=== PATIENT | female | born 1965 | race African-American/Black ===

== ENCOUNTER 2023-02-18 17:50 | Emergency (ER) | payer BC ==
[~2023-02-18] VITALS: Ht 154.9 cm; Wt 78.0 kg
[2023-02-18] MEDS ORDERED: TAMIFLU75 MG PO (18:46)
[2023-02-18 19:08] VITALS: BP 157/87
== END 2023-02-18 19:09 | disposition home or self-care (01) ==
LOC: FSED 17:56
DX: R05.9 Cough, unspecified (principal); J10.1 Influenza due to other identified influenza virus with other respiratory manifestations; J20.9 Acute bronchitis, unspecified; I10 Essential (primary) hypertension; M06.9 Rheumatoid arthritis, unspecified
CPT/HCPCS: 87400; 99282